=== PATIENT | female | born 1980 | race Caucasian/White ===

== ENCOUNTER 2019-12-22 07:07 | Outpatient (CLI) | payer OTHER, SELFPAY ==
--- NOTE | 2019-12-22 07:19 | MM_ITS ---
WS: [id number] SCREENING DIGITAL MAMMOGRAM WITH CAD HISTORY: SCREEN COMPARISON: None available. Bilateral CC and MLO views submitted. Computer aided detection analyzed. Breast composition: There are scattered areas of fibroglandular density. Lobulated mass at 5:00 of th e middle depth RIGHT breast needs further evaluation. There is an additional asymmetry in the upper-o uter quadrant of the LEFT breast posteriorly. Both of these densities may be superimposed fibroglandu lar tissue but no prior studies for comparison. RIGHT breast: Spot compression views (CC and MLO). True ML. Ultrasound to follow if abnormality persi sts. LEFT breast: Spot compression views (CC and MLO). True ML. Ultrasound to follow if abnormality persis ts. MM/[place] [id number] IMPRESSION: BI-RADS: 0-Incomplete: Need additional imaging evaluation FOLLOW UP: Need Additional Imaging
== END 2019-12-22 07:08 | disposition home or self-care (01) ==
LOC: RADSHAW 07:12
PROVIDERS: Family Provider Family Medicine; PCP Family Medicine
DX: Z12.31 Encounter for screening mammogram for malignant neoplasm of breast (principal)
CPT/HCPCS: 77067

== ENCOUNTER 2020-01-04 09:12 | Outpatient (CLI) | payer OTHER, SELFPAY ==
--- NOTE | 2020-01-04 09:18 | US_ITS ---
WS: [id number] ADDITIONAL VIEWS BILATERAL MAMMOGRAM AND BILATERAL BREAST ULTRASOUND ADDITIONAL VIEWS BILATERAL MAMMOGRAM HISTORY: RT BREAST MASS / LT BREAST ASYMMETRY COMPARISON: 12/22/2019 Right breast: Spot compression views medial breast demonstrated lobulated mass persists measuring 7 m m. Mass is near the 3-4 o'clock axis. Ultrasound to follow. Left breast: Asymmetric tissue in the upper outer quadrant of the LEFT breast posteriorly. Persists w ith additional imaging but there is no distortion. Ultrasound to follow. Favor this is probably benig n fibroglandular tissue. BREAST ULTRASOUND RIGHT breast, limited. At 5:00, one centimeters from the nipple is a lobulated soft tissue mass measuring 9 x 5.9 mm. Probab ly a small cluster of cysts or septated cysts. Correlates in size and location. LEFT breast, limited. At 2:00 LEFT breast there is dense fibroglandular tissue. No shadowing or mass. Normal fibroglandular density. Recommend 6 month RIGHT breast mammogram and ultrasound follow-up. Suspect benign complex cystic nodu le at 5:00 in the RIGHT breast corresponding to the mass on mammogram. Normal fibroglandular density upper outer quadrant LEFT breast. No additional follow-up. Anticipate a nnual mammographic evaluation. US/US breast BI limited* [id number] IMPRESSION: BI-RADS: 3-Probably Benign FOLLOW UP: 6 Month Follow-up
== END 2020-01-04 09:13 | disposition home or self-care (01) ==
LOC: RADSHAW 09:14
PROVIDERS: Family Provider Family Medicine; PCP Family Medicine
DX: N63.21 Unspecified lump in the left breast, upper outer quadrant (principal); N63.14 Unspecified lump in the right breast, lower inner quadrant
CPT/HCPCS: 76642; 77066

== ENCOUNTER 2021-02-05 12:53 | Outpatient (CLI) | payer OTHER, SELFPAY ==
--- NOTE | 2021-02-05 13:07 | MM_ITS ---
WS: [id number] BILATERAL DIGITAL DIAGNOSTIC MAMMOGRAM MAMMOGRAPHY WITH CAD CLINICAL INFORMATION: 6 MO F/U RT BREAST MASS HISTORY: Six-month follow-up COMPARISON: January 04, 2020 December 22, 2019 TECHNIQUE: Bilateral CC, MLO, and ML views. FINDINGS: Scattered fibroglandular densities bilaterally. Tiny slightly lobulated asymmetry in the right breast at the 3 to 4:00 position is smaller today and only faintly visualized. Ultrasound is pending. Left breast is unremarkable and unchanged. Stable benign breast tissue upper outer left breast chef manager ior depth. ULTRASOUND BREAST RIGHT TECHNIQUE: Ultrasound right breast focused area of concern. CLINICAL INFORMATION: 6 MO F/U RT BREAST MASS COMPARISON: None. FINDINGS: Ultrasound right breast at the 5 to 7:00 position. Tiny incidental cysts and clusters of microcysts a t the 5 and 7:00 position. No suspicious lesions. No lesions to target for biopsy. Recommend return t o annual screening mammography. MM/[place] [id number] IMPRESSION: BI-RADS: 2-Benign FOLLOW UP: 1 Year Follow-up Recommend return to annual screening mammography.
== END 2021-02-05 12:54 | disposition home or self-care (01) ==
LOC: RADSHAW 12:55
PROVIDERS: PCP Family Medicine; Visit Provider Nurse Practitioner Family
DX: N63.15 Unspecified lump in the right breast, overlapping quadrants (principal)
CPT/HCPCS: 76642; 77066

== ENCOUNTER 2021-07-30 10:21 | Outpatient (CLI) | payer MEDICAID, SELFPAY ==
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
== END 2021-07-30 10:22 | disposition home or self-care (01) ==
PROVIDERS: PCP Family Medicine; Visit Provider Family Medicine
DX: S42.021A Displaced fracture of shaft of right clavicle, initial encounter for closed fracture (principal); X58.XXXA Exposure to other specified factors, initial encounter
CPT/HCPCS: 73030

== ENCOUNTER → 2021-07-31 09:38 | Outpatient (BNVA) | payer MEDICAID, SELFPAY | PROVIDERS: PCP Family Medicine; Visit Provider Specialist | DX: T14.8XXA Other injury of unspecified body region, initial encounter (principal) | CPT/HCPCS: 73000 ==

== ENCOUNTER → 2021-08-03 09:03 | Outpatient (BNVA) | payer OTHER, SELFPAY | PROVIDERS: PCP Family Medicine; Visit Provider Specialist | DX: Z20.822 Contact with and (suspected) exposure to COVID-19 (principal) | CPT/HCPCS: 87635 ==

== ENCOUNTER → 2021-08-06 08:39 | Outpatient (BNVA) | payer MEDICAID, SELFPAY | PROVIDERS: PCP Family Medicine; Visit Provider Specialist | DX: S42.021A Displaced fracture of shaft of right clavicle, initial encounter for closed fracture (principal); M25.539 Pain in unspecified wrist; S69.90XA Unspecified injury of unspecified wrist, hand and finger(s), initial encounter | CPT/HCPCS: 73000; 73110 ==

== ENCOUNTER 2021-08-07 08:24 | Day surgery (SDC) | payer MEDICAID, SELFPAY ==
[2021-08-06 14:23] VITALS: BMI 32.5
[2021-08-07] VITALS (12 sets, daily range): BP systolic 146–179; BP diastolic 78–101; PULSE 61–84; RESP 11–18; TEMP 36.5–36.8; O2SAT 95–100
--- NOTE | 2021-08-07 | SCC_ITS ---
Procedure Done: Open reduction internal fixation right midshaft clavicle fracture 41.7 seconds of fluoroscopic guidance, for a cumulative dose of 4.69 mGy, was provided to Dr. Lopez by the radiology department. C-arm images of the RIGHT clavicle were saved for the patient's permanent record. [facility]
--- NOTE | 2021-08-07 | XR_ITS ---
WS: [id number] Right clavicle, C-arm fluoroscopy view, 08/07/2021 Clinical Data: Open reduction internal fixation right midshaft clavicle fx Comparison: Right clavicle, 08/06/2021. Findings: Dr. Vasquez performed a reduction and internal fixation of a mid shaft fracture of the right clavicle with plate and screws. XR/[place] [id number] Impression: Internal fixation of right mid clavicular fracture.
[2021-08-07] MEDS: CELEcoxib 100 mg Capsule 400 MG PO (09:11)
[2021-08-07 09:15] LABS: OR HCG Qualitative Urine Negative (Negative)
[2021-08-07] MEDS: acetaminophen 1,000 MG/100 ML PIGGYBACK 400 MG IV (09:28)
[2021-08-07] MEDS: sodium chloride 0.9% 1,000 ML 30 ML IV (09:28)
--- NOTE | 2021-08-07 10:02 | W.PM.OPSUD ---
Surgery/Procedure H&P Update DATE OF PROCEDURE: August 07, 2021 DATE H&P PERFORMED: 08/06/21 H&P UPDATE INFORMATION: I have reviewed H&P completed within last 30 days, I have examined patient prior to procedure, No changes to prior documentation and H&P is in [facility] [place] on date indicated PREOP DIAGNOSIS: Displaced closed right clavicle fracture PLANNED PROCEDURE: Operation Date: 08/07/21 10:20 Proposed Procedures p ORIF Clavicle 33352 S42.009A(Right) - Michelle Lopez MD Related Problem List Diagnoses (1) Displaced fracture of shaft of right clavicle:
[2021-08-07] MEDS: ondansetron 2 mg/ML SDV 2 mL 4 MG IVP (10:17)
[2021-08-07] MEDS: scopolamine 1.5 Patch 1 PATCH TRANSDERMA (10:17)
[2021-08-07] MEDS: midazolam 1 mg/mL INJ 2 mL 2 MG IVP (10:18)
--- NOTE | 2021-08-07 10:33 | P.ANESASSM_ITS ---
Pre-Anesthetic Assessment Pre-Anesthetic Assessment: Height/Weight: Height 1.63 m Weight 86.183 kg Temp Pulse Resp BP Pulse Ox 98.2 F 61 18 179/101 98 08/07/21 09:01 08/07/21 09:01 08/07/21 09:01 08/07/21 09:01 08/07/21 09:01 Preop Diagnosis: Displaced closed right clavicle fracture Proposed Procedure: Operation Date: 08/07/21 10:20 Proposed Procedures p ORIF Clavicle 08503 S42.009A(Right) - Michelle Lopez MD Was Beta Sayra taken within 24 hours: N/A Was Clonidine taken within 24 hours: N/A Last intake: Intake Last Liquid Date 08/06/21 Last Liquid Time 23:00 Last Solid Date 08/07/21 Last Solid Time 19:00 Social: Social History: Tobacco and No alcohol Exam: Pre-Anes Outpt Exam: alert, oriented x 3, clear to auscultation bilater ally and regular rate & rhythm Airway: Submandibular: WNL Cervical ROM: WNL MP: 2 Dentition: Full Metabolic: Metabolic: Morbid obesity Musc/skel: Musc/skel: Lower Back Pain Neuropsych: Neuropsych: Anxiety and Depression Anesthetic Plan: ASA status: 2 Anesthesia: General and Regional (specify below) (right interscalene ) Risk of > 500 ml blood loss (7ml/kg in children): No Meds/Allergies Current Medications: Current Medications Generic Name Dose Route Start Last Admin Trade Name Freq PRN Reason Stop Dose Admin Sodium Chloride 1,000 mls @ 30 ml s/hr 08/07/21 08:45 08/07/21 09:28 Sodium Chloride 0.9% IV 08/08/21 08:44 30 mls/hr .Q24H NANCY Administration Midazolam HCl 2 mg 08/07/21 08:45 08/07/21 10:18 Midazolam 1 Mg/M l Inj 2 Ml IVP 2 mg Q5M PRN Administration Preop Anxiety Ondansetron HCl 4 mg 08/07/21 08:45 08/07/21 10:17 Ondansetron 2 Mg /Ml Sdv 2 Ml IVP 4 mg Q5M PRN Administration NAUSEA AND VOMITI NG PFSH Anesthesia PFSH: Medical History Anxiety and depression Obesity Social History Alcohol intake: never Data Anesthesia Other Labs: Laboratory Results - last 48 hr 08/07/21 09:10 Urine HCG, Qual Negative Cardiac Studies: No Data to Display
--- NOTE | 2021-08-07 10:34 | ANES.PROC ---
Anesthesia Procedures Procedure/Date: 08/07/21 Nerve Block ^: Nerve Block 1: Main Anesthesia: general anesthesia Time Out Performed: Yes Consent: requested by attending/covering physician, from patient, risks and benefits reviewed and patient agrees to proceed Nerve block location: interscalene (right) Anesthesia monitors applied: pulse oximetry, EKG, BP cuff and oxygen Nerve block position: semi sitting Anesthetic Used: ropivicaine 0.5% Amount of anesthesia used (mL): 30 Ultrasound used to: recognize landmarks and visualize and ID brachial plexus Nerve Stimulator Used?: No Interscalene/Femoral BLK: 2 stimuplex 22 g needle used for position and inplane approach and visualize local anesthetic spread Injection: neg aspiration of heme Patient Tolerated Procedure: well Complications: none
[2021-08-07] MEDS: ceFAZolin 1,000 mg SDV 1000 MG IRRIGATION (12:18)
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
[2021-08-07] MEDS: fentaNYL 50 mcg/mL INJ 2mL IVP ×2 (14:11→14:16)
[2021-08-07] MEDS: oxyCODONE 5 mg IR Tab/Cap PO (15:00)
--- NOTE | 2021-08-08 16:49 | ANE.PACU2 ---
Inpatient post-anesthesia follow up: Airway intact: Yes Vital signs: Temperature 97.7 F Pulse Rate 64 Respiratory Rate 17 Blood Pressure 148/78 Pulse Oximetry 96 Oxygen Delivery Me thod Room Air Oxygen Flow Rate 8 Fraction of Inspir ed Oxygen Hydration adequate: Yes Nausea and vomiting: No Pain level: 1 Mental status: Baseline
== END 2021-08-07 15:05 | disposition home or self-care (01) ==
PROVIDERS: PCP Family Medicine; Visit Provider Specialist
PROC: (CPT 23515; principal; 2021-08-07 10:10)
DX: S42.021A Displaced fracture of shaft of right clavicle, initial encounter for closed fracture (principal); V86.69XA Passenger of other special all-terrain or other off-road motor vehicle injured in nontraffic accident, initial encounter; E66.01 Morbid (severe) obesity due to excess calories; Z68.32 Body mass index [BMI] 32.0-32.9, adult; F41.9 Anxiety disorder, unspecified; F32.9 Major depressive disorder, single episode, unspecified
CPT/HCPCS: 23515; 64415; 73000; 76000; 76942; 81025; 84703; 96365; C1713; J0690; J1100; J2250; J2405; J2704; J2710; J2795; J3010; J3490; J7030

== ENCOUNTER → 2021-08-27 13:42 | Outpatient (BNVA) | payer MEDICAID, SELFPAY | PROVIDERS: PCP Family Medicine; Visit Provider Specialist | DX: S42.021A Displaced fracture of shaft of right clavicle, initial encounter for closed fracture (principal); X58.XXXA Exposure to other specified factors, initial encounter | CPT/HCPCS: 73000 ==

== ENCOUNTER 2021-09-04 09:47 | Outpatient (RCR) | payer MEDICAID, SELFPAY | END 2021-10-02 23:59 | disposition home or self-care (01) | LOC: SPT 09:47 | PROVIDERS: PCP Family Medicine; Referring Provider Specialist; Visit Provider Specialist | DX: Z98.890 Other specified postprocedural states (principal) | CPT/HCPCS: 97110; 97161 ==

== ENCOUNTER → 2021-09-19 12:57 | Outpatient (BNVA) | payer MEDICAID, SELFPAY | PROVIDERS: PCP Family Medicine; Visit Provider Specialist | DX: S42.021D Displaced fracture of shaft of right clavicle, subsequent encounter for fracture with routine healing (principal); X58.XXXD Exposure to other specified factors, subsequent encounter | CPT/HCPCS: 73000 ==

== ENCOUNTER 2021-10-03 06:00 | Outpatient (RCR) | payer SELFPAY | END 2021-10-18 23:00 | disposition home or self-care (01) | LOC: SPT 06:00 | PROVIDERS: PCP Family Medicine; Referring Provider Specialist; Visit Provider Specialist | DX: S42.001D Fracture of unspecified part of right clavicle, subsequent encounter for fracture with routine healing (principal); X58.XXXD Exposure to other specified factors, subsequent encounter | CPT/HCPCS: 97110 ==

== ENCOUNTER → 2021-10-15 11:37 | Outpatient (BNVA) | payer OTHER, SELFPAY | PROVIDERS: PCP Family Medicine; Visit Provider Surgery | DX: Z11.52 Encounter for screening for COVID-19 (principal); Z83.71 Family history of colonic polyps | CPT/HCPCS: 87635 ==

== ENCOUNTER 2021-10-19 05:53 | Day surgery (SDC) | payer MEDICAID, SELFPAY ==
[2021-10-17 10:49] VITALS: BMI 33.5
[2021-10-19 06:11] VITALS: BP 144/82; PULSE 66; RESP 18; TEMP 36.1; O2SAT 98
[2021-10-19] MEDS: sodium chloride 0.9% 1,000 ML 30 ML IV (06:24)
[2021-10-19 06:26] LABS: OR HCG Qualitative Urine Negative (Negative)
--- NOTE | 2021-10-19 06:46 | P.ANESASSM_ITS ---
Pre-Anesthetic Assessment Pre-Anesthetic Assessment: Height/Weight: Height 1.63 m Weight 88.451 kg Temp Pulse Resp BP Pulse Ox 97 F L 66 18 144/82 98 10/19/21 06:11 10/19/21 06:11 10/19/21 06:11 10/19/21 06:11 10/19/21 06:11 Preop Diagnosis: diagnostic Proposed Procedure: Operation Date: 10/19/21 07:00 Proposed Procedures p Colonoscopy 83550 Z80.0(Not Applicable) - Solitario Hathaway MD Was Beta Sayra taken within 24 hours: N/A Was Clonidine taken within 24 hours: N/A Last intake: Intake Last Liquid Date 10/18/21 Last Liquid Time 22:00 Last Solid Date 10/17/21 Last Solid Time 22:00 Social: Social History: Alcohol (2-3 times per week, wine, beer) and No tobacco Exam: Pre-Anes Outpt Exam: alert, oriented x 3 and clear to auscultation bilaterally Airway: Submandibular: WNL Cervical ROM: WNL MP: 2 Dentition: Partia ls History/ROS: No significant history except as noted Pulmonary: Pulmonary: None reported CV/HEM: CV/HEM: None reported : : None reported Hepatic: Hepatic: None reported GI: GI: None reported Neuropsych: Neuropsych: Anxiety and Depression Anesthetic Plan: ASA status: 2 Meds/Allergies Current Medications: Current Medications Generic Name Dose Route Start Last Admin Trade Name Freq PRN Reason Stop Dose Admin Sodium Chloride 1,000 mls @ 30 ml s/hr 10/19/21 06:00 10/19/21 06:24 Sodium Chloride 0.9% IV 10/20/21 05:59 30 mls/hr .Q24H NANCY Administration PFSH Anesthesia PFSH: Medical History Anxiety and depression Hypertension Surgical History History of arthroscopic knee surgery History of tubal ligation Social History Alcohol intake: never Data Anesthesia Other Labs: Laboratory Results - last 48 hr 10/19/21 06:20 Urine HCG, Qual Negative Cardiac Studies: No Data to Display
--- NOTE | 2021-10-19 07:00 | P.HP_ITS ---
Same Day Surgery H&P Indication for Procedure/HPI DATE OF PROCEDURE: October 19, 2021 CHIEF COMPLAINT/INDICATIONFOR SURGICAL PROCEDURE: colonoscopy PREOP DIAGNOSIS: diagnostic PLANNED PROCEDRUE: Operation Date: 10/19/21 07:00 Proposed Procedures p Colonoscopy 13079 Z80.0(Not Applicable) - Solitario Hathaway MD Medications/Allergies* Home Medications Medication Instructions Recorded Confirmed Type phentermine 37.5 mg PO DAILY 08/06/21 10/17/21 History iron 18 mg PO DAILY 10/17/21 10/17/21 History lactobacillus combination no.4 3,000 mmu cells PO DAILY 10/17/21 10/17/21 History [Probiotic] magnesium 200 mg PO DAILY 10/17/21 10/17/21 History omega-3 fatty acids [Fish Oil] 1 cap PO DAILY 10/17/21 10/17/21 History Allergies/Adverse Reactions Allergy/AdvReac Type Severity Reaction Status Date / Time No Known Allergies Allergy Verified 10/17/21 10:51 Current Medications: Generic Name Dose Route Start Last Admin Trade Name Freq PRN Reason Stop Dose Admin Sodium Chloride 1,000 mls @ 30 mls/hr 10/19/21 06:00 10/19/21 06:24 Sodium Chloride 0.9% IV 10/20/21 05:59 30 mls/hr .Q24H NANCY Administration Pertinent History/Comorbid Conditions* Medical History (Updated 09/18/21 @ 16:29 by Solitario Hathaway MD) Anxiety and depression Hypertension Surgical History (Updated 08/07/21 @ 13:29 by Michelle Lopez MD) History of arthroscopic knee surgery History of tubal ligation Social History Alcohol intake: never Pertinent Exam Findings alert, oriented x 3 and regular rate & rhythm Recommendations Surgery/Procedure today Coding Level of Care Code Acute Metal Mockup Maker for Chg Keiry
[2021-10-19 07:25] VITALS: BP 119/84; PULSE 86; RESP 16; TEMP 36.2; O2SAT 98
[2021-10-19 07:38] VITALS: BP 118/84; PULSE 65; RESP 16; O2SAT 98
--- NOTE | 2021-10-19 07:51 | ANE.PACU2 ---
Inpatient post-anesthesia follow up: Airway intact: Yes Vital signs: Temperature 97.1 F Pulse Rate 65 Respiratory Rate 16 Blood Pressure 118/84 Pulse Oximetry 98 Oxygen Delivery Me thod Room Air Oxygen Flow Rate Fraction of Inspir ed Oxygen Hydration adequate: Yes Mental status: Baseline
--- NOTE | 2021-10-19 13:18 | ANE.PACU2 ---
Inpatient post-anesthesia follow up: Airway intact: Yes Vital signs: Temperature 97.1 F Pulse Rate 65 Respiratory Rate 16 Blood Pressure 118/84 Pulse Oximetry 98 Oxygen Delivery Me thod Room Air Oxygen Flow Rate Fraction of Inspir ed Oxygen Hydration adequate: Yes Nausea and vomiting: No Pain level: 1 Mental status: Baseline
== END 2021-10-19 07:50 | disposition home or self-care (01) ==
PROVIDERS: Anesthesiology; PCP Family Medicine; Visit Provider Surgery
PROC: 0DJD8ZZ Inspection of Lower Intestinal Tract, Via Natural or Artificial Opening Endoscopic (ICD-10-PCS; CPT 45378; principal; 2021-10-19 07:00)
DX: D12.4 Benign neoplasm of descending colon (principal); K64.8 Other hemorrhoids; Z83.71 Family history of colonic polyps; Z80.0 Family history of malignant neoplasm of digestive organs; I10 Essential (primary) hypertension
CPT/HCPCS: 45385; 81025; 84703; 88305; 96360; J2704; J7030

== ENCOUNTER → 2022-08-21 09:48 | Outpatient (BNVA) | payer BC, MEDICAID, SELFPAY | PROVIDERS: PCP Family Medicine; Visit Provider Family Medicine | DX: E66.9 Obesity, unspecified (principal); I10 Essential (primary) hypertension; M50.121 Cervical disc disorder at C4-C5 level with radiculopathy; Z83.71 Family history of colonic polyps; M51.16 Intervertebral disc disorders with radiculopathy, lumbar region; F32.9 Major depressive disorder, single episode, unspecified; F41.9 Anxiety disorder, unspecified; B35.1 Tinea unguium | CPT/HCPCS: 80053; 84443; 85025 ==

== ENCOUNTER → 2022-09-12 11:02 | Outpatient (BNVA) | payer BC, MEDICAID, SELFPAY | PROVIDERS: PCP Family Medicine; Referring Provider Family Medicine; Visit Provider Orthopaedic Surgery | DX: M50.121 Cervical disc disorder at C4-C5 level with radiculopathy (principal) | CPT/HCPCS: 72050 ==

== ENCOUNTER 2022-09-12 12:31 | Emergency (ER) | payer BC, MEDICAID, SELFPAY ==
[2022-09-12 12:35] VITALS: BMI 30.4
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
[2022-09-12] MEDS: ketorolac 60 mg/2 mL INJ IM (14:09)
== END 2022-09-12 14:32 | disposition home or self-care (01) ==
PROVIDERS: Emergency Provider Nurse Practitioner Family; PCP Family Medicine
DX: S29.012A Strain of muscle and tendon of back wall of thorax, initial encounter (principal); W22.11XA Striking against or struck by driver side automobile airbag, initial encounter; V89.2XXA Person injured in unspecified motor-vehicle accident, traffic, initial encounter
CPT/HCPCS: 71046; 72040; 72072; 76705; 96372; 99285; J1885

== ENCOUNTER → 2022-11-20 12:02 | Outpatient (BNVA) | payer BC, MEDICAID, SELFPAY | PROVIDERS: PCP Family Medicine; Visit Provider Family Medicine | DX: R35.0 Frequency of micturition (principal) | CPT/HCPCS: 81000 ==

== ENCOUNTER → 2022-12-16 15:17 | Outpatient (BNVA) | payer BC, MEDICAID, SELFPAY | PROVIDERS: PCP Family Medicine; Visit Provider Specialist | DX: G56.03 Carpal tunnel syndrome, bilateral upper limbs (principal) | CPT/HCPCS: 73110 ==

== ENCOUNTER 2023-01-10 05:55 | Day surgery (SDC) | payer BC, MEDICAID, SELFPAY ==
[2023-01-09 09:31] VITALS: BMI 31.7
[2023-01-10] VITALS (7 sets, daily range): BP systolic 137–177; BP diastolic 98–115; PULSE 61–85; RESP 16–20; TEMP 36.2–36.6; O2SAT 99–100
[2023-01-10] MEDS: sodium chloride 0.9% 1,000 ML 30 ML IV (06:24)
[2023-01-10] MEDS: acetaminophen 1,000 MG/100 ML PIGGYBACK 400 MG IV (06:26)
[2023-01-10] MEDS: CELEcoxib 200 mg Capsule 400 MG PO (06:28)
[2023-01-10 06:30] LABS: OR HCG Qualitative Urine Negative (Negative)
--- NOTE | 2023-01-10 06:37 | ANES.PREANE2 ---
Pre-Anesthetic Assessment Height/Weight: Height 1.63 m Weight 83.915 kg Temp Pulse Resp BP Pulse Ox O2 Del Method 97.5 F L 67 16 152/104 99 01/10/23 06:09 01/10/23 06:09 01/10/23 06:09 01/10/23 06:09 01/10/23 06:09 01/10/23 06:09 Preop Diagnosis: Right carpal tunnel syndrome Operation Date: 01/10/23 07:00 Proposed Procedures p RIGHT CARPAL TUNNEL RELEASE [id number],G56.00(Right) - Michelle Lopez MD Familial anesthetic complications: None Was Beta Sayra taken within 24 hours: N/A Was Clonidine taken within 24 hours: N/A Last intake: Intake Last Liquid Date 01/09/23 Last Liquid Time 17:00 Last Solid Date 01/09/23 Last Solid Time 17:00 Social Alcohol (couple times a week) and No alcohol former smoker Exam alert, oriented x 3, clear to auscultation bilaterally and regular rate & rhythm Airway Mallampati: Class II Dentition: false CV/HEM Hypertension (no longer on medications) Neuropsych Anxiety Anesthetic Plan ASA status: 2 Anesthesia: General Risk of > 500 ml blood loss (7ml/kg in children): No Medications/Allergies Home Medications Medication Instructions Recorded Confirmed Last Taken Type iron 18 mg tablet 18 mg PO DAILY 10/17/21 01/10/23 01/09/23 History magnesium 200 mg tablet 200 mg PO DAILY 10/17/21 01/09/23 01/09/23 History omega-3 fatty acids 1 cap PO DAILY 10/17/21 01/10/23 01/05/23 History ibuprofen 800 mg tablet 800 mg PO Q8H #60 tabs 04/09/22 01/10/23 01/05/23 Rx alprazolam 0.5 mg tablet 0.5 mg PO DAILY PRN anxiety #30 08/21/22 01/10/23 01/03/23 Rx tabs hydrocodone 10 mg-acetaminophen 1 tab PO Q6H PRN pain 7 days #28 11/20/22 01/10/23 12/27/22 Rx 325 mg tablet tabs Allergies Allergy/AdvReac Type Severity Reaction Status Date / Time No Known Allergies Allergy Verified 01/10/23 06:18 Current Medications Generic Name Dose Route Start Last Admin Trade Name Freq PRN Reason Stop Dose Admin Sodium Chloride 1,000 mls @ 30 mls/hr 01/10/23 06:15 01/10/23 06:24 Sodium Chloride 0.9% IV 01/11/23 06:14 30 mls/hr .Q24H NANCY Administration PFSH Anesthesia Medical History Anxiety and depression Hypertension Surgical History History of arthroscopic knee surgery History of tubal ligation Social History Smoking and tobacco status: former smoker Alcohol intake: never Female Reproductive History Date of last menstrual period: 01/09/23 Data Anesthesia Cardiac Studies: No Data to Display
--- NOTE | 2023-01-10 06:57 | W.PM.OPSUD ---
Surgery/Procedure H&P Update DATE OF PROCEDURE: January 10, 2023 DATE H&P PERFORMED: 12/16/22 H&P UPDATE INFORMATION: I have reviewed H&P completed within last 30 days, I have examined patient prior to procedure, No changes to prior documentation and H&P is in [facility] EMR on date indicated PREOP DIAGNOSIS: Right carpal tunnel syndrome PLANNED PROCEDURE: Operation Date: 01/10/23 07:00 Proposed Procedures p RIGHT CARPAL TUNNEL RELEASE [id number],G56.00(Right) - Michelle Lopez MD Related Problem List Diagnoses (1) Carpal tunnel syndrome on right:
[2023-01-10] MEDS: ceFAZolin 2,000 MG in sodium chloride 0.9% (plus) 50 ML 100 MG IV (07:01)
--- NOTE | 2023-01-10 08:04 | P.OP_ITS ---
Operative Report Date of procedure: January 10, 2023 Pre-op diagnosis: Right carpal tunnel syndrome Post-op diagnosis: Right carpal tunnel syndrome Post-op findings: Purplish discoloration and significant compression across the median nerve consistent with carpal tunnel syndrome Procedure done: Right carpal tunnel release Pathology: none sent Surgeon: Michelle Lopez Protein Chemist: None Anesthesia: General (Per LMA, ASA 2) Estimated blood loss (mL): 2 Tourniquet time (min): 22 (At 250 mmHg) IV fluids (mL): 900 Urine output (mL): 0 (No Contreras) Complications: None Condition: stable Disposition: PACU (Then return to same-day surgery for discharge to home) Brief History: This is an established 42 year old female patient here today for right carpal tunnel release. The patient has diagnosis of bilateral carpal tunnel, but the right one is worse, and she wishes to proceed initially with right carpal tunnel release. Patient states she has had issues with pain and numbness for the past few years. Patient states that this year she had an 8 month period where she had complete numbness to the thumb, index, middle, and ring finger bilaterally. Patient states that the pain would keep her up at night. Procedure: The patient was brought to the operating theater. The patient had a general anesthesia per LMA. The tourniquet was elevated to 250 mmHg for a total tourniquet time of 22 minutes. The patient was also given Ancef 2 g preoperatively. The arm was then prepped and draped with DuraPrep in usual fashion with the arm draped free. A surgical pause was performed. At the time, the surgical pause, we confirmed the site and side of surgery. We also confirmed the patient's identity, appropriate and timely administration of preoperative antibiotics and preoperative surgical markings. An incision was then made along the thenar crease. The incision crossed the wrist joint in a curvilinear fashion. Dissection continued through skin and soft tissues using a scalpel. The palmaris longus was identified along with the transverse carpal ligament. Each of these was released carefully to avoid injury to the median nerve. We were able to dissect gently into the carpal canal which was noted to be quite tight with significant compression across the median nerve. The nerve was visualized and was an hourglass shape with red and purplish discoloration. The canal was subsequently palpated to assure there was no bony encroachment upon the canal. There was a quite thickened fibrous tissue within the canal, and this was opened longitudinally as well. The canal was then palpated distally and proximally to assure that my small finger was passed easily without impingement. Finding this to be so, attention was directed to padmini de jesus. The wound was irrigated with ropivacaine plain. It was then closed with 3-0 nylon in an interrupted mattress fashion. Sterile dressing was then placed consisting of Dermabond, OpSite, sterile soft roll, and an Domenic wrap. The tourniquet was released after 22 minutes. There were no complications. There were no specimens. The procedure was well tolerated. Plan is the patient will be discharged home. Related Problem List Diagnoses (1) Carpal tunnel syndrome on right:
[2023-01-10] MEDS: HYDROcodone-acetaminophen 5-325 mg Tablet 1 TAB PO (08:21)
--- NOTE | 2023-01-10 12:24 | ANE.PACU2 ---
Inpatient post-anesthesia follow up: Airway intact: Yes Vital signs: Temperature 98 F Pulse Rate 72 Respiratory Rate 16 Blood Pressure 160/104 Pulse Oximetry 99 Oxygen Delivery Me thod Room Air Oxygen Flow Rate Fraction of Inspir ed Oxygen Hydration adequate: Yes Nausea and vomiting: No Pain level: 1 Mental status: Baseline
== END 2023-01-10 08:50 | disposition home or self-care (01) ==
PROVIDERS: PCP Family Medicine; Visit Provider Specialist
PROC: (CPT 64721; principal; 2023-01-10 07:00)
DX: G56.01 Carpal tunnel syndrome, right upper limb (principal); G56.03 Carpal tunnel syndrome, bilateral upper limbs; I10 Essential (primary) hypertension; Z87.891 Personal history of nicotine dependence
CPT/HCPCS: 64721; 81025; 84703; J0131; J0690; J1100; J1170; J2250; J2405; J2704; J3010; J3490; J7030

== ENCOUNTER 2023-06-17 13:06 | Outpatient (CLI) | payer BC, MEDICAID, SELFPAY ==
--- NOTE | 2023-06-17 13:09 | XRR_ITS ---
PROCEDURE INFORMATION: Exam: XR Right Hand Exam date and time: 06/17/2023 1:20 PM Age: 43 years old Clinical indication: Pain; Finger(s); Right; Patient HX: Patient jammed thumb and wants pictures (3 months ago); Additional info: Persistant 1st mcp and pip right hand TECHNIQUE: Imaging protocol: Radiologic exam of the right hand. Views: 3 or more views. COMPARISON: CR XR wrist RT min 3V* [id number] 12/16/2022 3:17 PM FINDINGS: Bones/joints: Normal. Soft tissues: Normal. XR/XR hand RT min 3V* [id number] IMPRESSION: No acute findings. No significant change.
== END 2023-06-17 13:07 | disposition home or self-care (01) ==
LOC: RAD 13:07
PROVIDERS: PCP Family Medicine; Visit Provider Family Medicine
DX: M12.541 Traumatic arthropathy, right hand (principal)
CPT/HCPCS: 73130

== ENCOUNTER 2024-04-21 09:07 | Outpatient (CLI) | payer BC, MEDICAID, SELFPAY ==
--- NOTE | 2024-04-21 09:00 | MM_ITS ---
WS: [id number] VIEWS: MLO and CC views both breasts. 3D digital tomosynthesis is also included in this exam. Comparison made with prior exam of 12/22/2019 and 02/05/2021. Findings: Questionable new 1 cm lobulated nodule noted deep in the LEFT breast almost directly behind the nippl e. 90 degree lateral view with tomography as well as regional ultrasound recommended for further work -up. There are stable appearing nodular densities in the RIGHT breast. There are scattered areas of f ibroglandular density noted MM/[place] [id number] Impression: BI-RADS: 0-Incomplete: Need additional imaging evaluation FOLLOW-UP: See Report This mammogram was also analyzed by the Computer Aided Detection System R2 Imag e Double End Tenoner Operator.
== END 2024-04-21 09:08 | disposition home or self-care (01) ==
LOC: MOBLMAM 09:12
PROVIDERS: PCP Family Medicine; Visit Provider Family Medicine
DX: Z12.31 Encounter for screening mammogram for malignant neoplasm of breast (principal); N63.20 Unspecified lump in the left breast, unspecified quadrant; R92.323 Mammographic fibroglandular density, bilateral breasts
CPT/HCPCS: 77063; 77067

== ENCOUNTER 2024-05-24 14:26 | Outpatient (CLI) | payer BC, MEDICAID, SELFPAY ==
--- NOTE | 2024-05-24 14:35 | MM_ITS ---
WS: [id number] LEFT 3D TOMOSYNTHESIS DIGITAL MAMMOGRAPHY WITH CAD CLINICAL INFORMATION: ABNORMAL MAMMOGRAM HISTORY: Additional views COMPARISON: 04/21/2024 TECHNIQUE: 3 views of the left breast were obtained. FINDINGS: Scattered fibroglandular densities of the left breast. Previously described stable persistent nodular density LEFT breast measuring 7 mm. Ultrasound is pending. ULTRASOUND BREAST LEFT TECHNIQUE: Ultrasound left breast focused area of concern. CLINICAL INFORMATION: ABNORMAL MAMMOGRAM FINDINGS: Ultrasound subareolar LEFT breast posterior depth. Normal dense underlying parenchymal tissue. No cys tic or solid lesions. No suspicious lesions to target for biopsy. Findings are benign. Recommend retu rn to annual screening mammography. MM/[id number] IMPRESSION: BI-RADS: 2-Benign FOLLOW UP: 1 Year Follow-up Recommend return to annual screening mammography.
== END 2024-05-24 14:27 | disposition home or self-care (01) ==
PROVIDERS: PCP Family Medicine; Visit Provider Family Medicine
DX: R92.8 Other abnormal and inconclusive findings on diagnostic imaging of breast (principal); R92.323 Mammographic fibroglandular density, bilateral breasts; N63.20 Unspecified lump in the left breast, unspecified quadrant
CPT/HCPCS: 76642; 77061; G0279